=== PATIENT | male | born 1970 | race Caucasian/White ===

== ENCOUNTER 2024-01-04 19:01 | Emergency (ER) | payer MEDICAID, SELFPAY ==
[2024-01-04 19:02] VITALS: BP 140/83; PULSE 80; RESP 15; TEMP 36.4; O2SAT 94; BMI 24.1
--- NOTE | 2024-01-04 19:17 | CT_ITS ---
EXAM: CT CHEST, ABDOMEN AND PELVIS WITHOUT INTRAVENOUS CONTRAST CLINICAL INDICATION: rib pain, back pain TECHNIQUE: Helically acquired images were obtained of the chest, abdomen and pelvis without intravenous contrast. This CT exam was performed using one or more of the following dose reduction techniques: automated exposure control, adjustment of the mA and/or kV according to patient size, and/or use of iterative reconstruction technique. RADIATION DOSE: CTDIvol = 12.74 mGy, DLP = 1355.21 mGy-cm COMPARISON: No relevant prior studies available. FINDINGS: CHEST: LUNGS AND PLEURAL SPACES: Unremarkable. No mass. No consolidation or edema. No pleural effusion or thickening. No pneumothorax. HEART: There are calcifications of the coronary arteries. Heart size is normal. No pericardial effusion. MEDIASTINUM: Unremarkable. No mediastinal or hilar adenopathy. Esophagus is unremarkable. No hiatal hernia. THYROID: Unremarkable. No thyroid lesions. ABDOMEN: LIVER: Unremarkable. Homogeneous. GALLBLADDER AND BILE DUCTS: Unremarkable. No calcified gallstones. No gallbladder distention or wall edema. No intra- or extrahepatic biliary ductal dilation. PANCREAS: Unremarkable. No focal cystic mass. SPLEEN: Unremarkable. Normal size without focal cystic or solid mass. ADRENALS: Unremarkable. No nodules. KIDNEYS AND URETERS: Unremarkable. Normal renal size and position. No hydronephrosis. STOMACH AND BOWEL: Diverticulosis is identified. No stomach or bowel distention. No focal inflammatory change. PELVIS: APPENDIX: Unremarkable appearance of the appendix. BLADDER: Unremarkable. REPRODUCTIVE: Unremarkable as visualized. No mass. CHEST, ABDOMEN and PELVIS: INTRAPERITONEAL SPACE: Unremarkable. No ascites or other fluid collection. No free air. BONES/JOINTS: There are degenerative changes of the shoulders. There are multi-level degenerative changes of the thoracic spine. Degenerative change of the lumbar spine. Scoliosis of the lumbar spine. Degenerative findings in both hips. No suspicious lytic or blastic abnormality. SOFT TISSUES: Umbilical hernia containing fat. VASCULATURE: There is atherosclerotic calcification of the aortic arch with tortuosity and elongation of the aortic arch and descending thoracic aorta. Abdominal aortic vascular calcifications. LYMPH NODES: Unremarkable. No enlarged lymph nodes. OTHER FINDINGS: No sagittal or coronal reconstructed images were obtained of the abdomen and pelvis. CT/CT Chest, Abd, Pelvis WO Cont IMPRESSION: Diverticulosis is identified. Electronically Signed: Jesus Galeas MD at 20:21 EDT ,
--- NOTE | 2024-01-04 19:17 | CT_ITS ---
EXAM: CT SPINE - CERVICAL WITHOUT IV REASON FOR EXAM: Male, 53 years old. NECK PAIN neck pain HISTORY: NECK PAIN neck pain Individualized dose optimization techniques were used for this CT. TECHNIQUE: Multiplanar images were obtained of the cervical spine. IV contrast was not utilized. COMPARISON: None. FINDINGS: The vertebral bodies do maintain their height. The odontoid process is intact. No pre-vertebral soft tissue swelling is seen. The intravertebral disc height is lost. There are scattered lymph nodes in the neck. There are degenerative changes of the osseous structures. There is bilateral facet arthropathy. There are scattered levels of foraminal stenosis. There are vascular calcifications. CT/Spine Cervical without Contras IMPRESSION: Degenerative changes of the cervical spine. There are no acute findings. Electronically Signed: Jesus Galeas MD at 20:18 EDT ,
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
[2024-01-04] MEDS: Ibuprofen 200 MG Tablet 400 MG PO (20:08)
[2024-01-04] MEDS: Lidocaine 5% Patch 1 PATCH TOPICAL (20:46)
== END 2024-01-04 20:51 | disposition home or self-care (01) ==
PROVIDERS: Emergency Provider Student in an Organized Health Care Education/Training Program; Visit Provider Student in an Organized Health Care Education/Training Program
DX: S39.012A Strain of muscle, fascia and tendon of lower back, initial encounter (principal); S16.1XXA Strain of muscle, fascia and tendon at neck level, initial encounter; F17.210 Nicotine dependence, cigarettes, uncomplicated; S20.212A Contusion of left front wall of thorax, initial encounter; V43.62XA Car passenger injured in collision with other type car in traffic accident, initial encounter; I10 Essential (primary) hypertension
CPT/HCPCS: 70450; 71250; 72125; 74176; 99283